=== PATIENT | female | born 1955 | race Caucasian/White ===

== ENCOUNTER → 2016-11-01 | Day surgery (SDC) | payer OTHER ==
[~2016-11-01] MED LIST: CITALOPRAM HBR40 MG PO; CLONIDINE HCL0.1 MG PO; LAMICTAL100 MG PO; NORVASC PO; OXYCONTIN30 MG PO; SAPHRIS10 MG PO; TOPAMAX50 MG PO; XANAX1 MG PO
--- NOTE | ~2016-11-01 | OR ---
Unit #: [id number] #: [id number] Patient: MICHELLE MEJIA [id number] [address] [place], [place] [address] [id number] O MR#: [id number] NAME: MICHELLE MEJIA ROOM: Date of Procedure: 11/01/2016 Admission Date: 11/01/2016 Surgeon: Anirudh Mac M.D. : 1955 Attending Physician: Anirudh Mac M.D. Primary Care Physician: Andi Fernandez M.D. OPERATIVE REPORT PREOPERATIVE DIAGNOSES Radiculopathy, post-laminectomy syndrome, degenerative disk disease. POSTOPERATIVE DIAGNOSES Radiculopathy, post-laminectomy syndrome, degenerative disk disease. PROCEDURE PERFORMED Transforaminal epidural steroid injection with intravenous sedation and fluoroscopic guidance for needle localization. INDICATIONS FOR PROCEDURE The patient is a 61-year-old female with return of significant right lower extremity pain. She had multiple surgery. She has failed spinal cord stimulation and intrathecal pump. Symptoms now mostly drive from the L3-L4 level with right L3 nerve root compression. A single transforaminal injection done there 6 months ago resulting 3 to 4 months of significant improvement. Based on a good partial response, pathology, and symptomatology, we are going to proceed with a repeat transforaminal injection at this point. DESCRIPTION OF PROCEDURE The patient was placed in a prone position. Standard monitors were applied. 4 mg of Versed were given for sedation and anxiolysis, which were adequate. Vital signs remained stable. Sterile prep and drape then of the lumbar area was performed. The skin then to the right of midline at the L3-L4 level was localized with 1% lidocaine. A long 22-gauge Quincke point needle was then advanced with biplanar fluoroscopic guidance to bring the needle tip to within the edge of the right L3-L4 neural foramina. The patient did not have any complaint of pain or paresthesia. After confirming proper positioning with fluoroscopy and radiographic contrast, 80 mg Depo-Medrol and 1 mL of 0.25% bupivacaine were deposited. The patient tolerated the procedure otherwise well and was discharged to the recovery room in stable condition. Dictated by... Patricio Richardson/stefan TD: 11/02/2016 01:20 JOB #: [id number] Unit #: [id number] #: [id number] Patient: MICHELLE MEJIA OPERATIVE REPORT Page 1 of 1 X Anirudh Mac MD X PROCEDURE OPERATIVE NOTE
== END | disposition home or self-care (01) ==
LOC: CCSC 08:33
DX: M96.1 Postlaminectomy syndrome, not elsewhere classified (principal); M51.16 Intervertebral disc disorders with radiculopathy, lumbar region
CPT/HCPCS: J1040; J2250

== ENCOUNTER → 2016-11-27 | Day surgery (SDC) | payer OTHER ==
--- NOTE | ~2016-11-27 | OR ---
Unit #: [id number] #: [id number] Patient: MICHELLE MEJIA [id number] [address] [place], [place] [address] [id number] O MR#: [id number] NAME: MICHELLE MEJIA ROOM: Date of Procedure: 11/27/2016 Admission Date: 11/27/2016 Surgeon: Anirudh Mac M.D. : 1955 Attending Physician: Anirudh Mac M.D. Primary Care Physician: Andi Fernandez M.D. PROCEDURE OPERATIVE NOTE PREOPERATIVE DIAGNOSIS Post laminectomy and post fusion, degenerative disc disease, chronic radiculopathy, back pain. POSTOPERATIVE DIAGNOSIS Post laminectomy and post fusion, degenerative disc disease, chronic radiculopathy, back pain. PROCEDURE PERFORMED Transforaminal epidural steroid injection with IV sedation and fluoroscopic guidance for needle localization. HISTORY The patient is a 61-year-old female with previous complaints of right lower extremity pain. She has had multiple surgeries including trial of spinal cord stimulation pump that was placed and then removed. She has failed conservative treatment alone. Intermittent transforaminal injections have been helpful in the past. She had one done in May that worked quite well. One was repeated about three or four weeks ago and did not result in the same (1) she got in the past. Due to the limited other options for pathology and current symptomatology, we are going to proceed with a repeat transforaminal epidural steroid injection today at the right L3-4 level which is felt to be the pathologic symptomatic level. DESCRIPTION OF PROCEDURE The patient was placed in a prone position. Standard monitors were applied. 4 mg of Versed were given for sedation and anxiolysis, which were adequate. Vital signs remained stable. Sterile prep and drape then of the lumbar area was performed. The skin to the right of midline at the L3-4 level was localized with 1% lidocaine. A long 22-gauge Quincke point spinal needle was then advanced with biplanar fluoroscopic guidance to bring the needle tip to within the edge of the right L3-4 neural foramina. After confirming proper positioning with fluoroscopy and radiographic contrast, 80 mg of Depo-Medrol and 1 mL of 0.25% bupivacaine were deposited. The patient tolerated the procedure otherwise well and was discharged to the recovery room in stable condition. Dictated by... Anirudh Mac M.D. Unit #: [id number] #: [id number] Patient: MICHELLE MEJIA ADAM/fadumo TD: 11/27/2016 12:13 JOB #: [id number] PROCEDURE OPERATIVE NOTE Page 1 of 1 X Anirudh Mac MD X PROCEDURE OPERATIVE NOTE
== END | disposition home or self-care (01) ==
LOC: CCSC 08:53
DX: M51.16 Intervertebral disc disorders with radiculopathy, lumbar region (principal); J44.9 Chronic obstructive pulmonary disease, unspecified; Z98.1 Arthrodesis status
CPT/HCPCS: J1040; J2250